=== PATIENT | female | born 1950 | race Caucasian/White ===

== ENCOUNTER 2018-09-14 | Emergency (ER) | payer MEDICARE, MEDICAID ==
[2018-09-14 00:10] VITALS: BMI 28.5
[2018-09-14 00:17] VITALS: RESP 18
--- NOTE | 2018-09-14 00:26 | C.PDOC ---
History Of Present Illness Pt presents with right flank pain radiating towads the groin, with some nausea and 2 episodes of emesis. No f/c.No chest pain or palpitations. Dull aching pain. No dysuria. Time Seen by Provider: 09/14/18 00:25 Chief Complaint (Nursing): Back Pain History Per: Patient History/Exam Limitations: no limitations Onset/Duration Of Symptoms: Days Current Symptoms Are (Timing): Still Present Context: Other Severity: Moderate Pain Scale Rating Of: 4 Location Of Pain/Discomfort: RUQ Radiation Of Pain To:: Back Quality Of Discomfort: Sharp Associated Symptoms: Nausea, Vomiting. denies: Fever, Chills Exacerbating Factors: None Alleviating Factors: None Recent travel outside of the [place]: No Additional History Per: Family Abnormal Vaginal Bleeding: No Past Medical History Reviewed: Historical Data, Nursing Documentation, Vital Signs Vital Signs: Last Vital Signs Temp 97.6 F 09/14/18 00:10 Pulse 75 09/14/18 00:10 Resp 18 09/14/18 00:10 BP 133/75 09/14/18 00:10 Pulse Ox 100 09/14/18 00:10 - Medical History PMH: HTN, Hyperlipidemia Surgical History: Appendectomy, Cholecystectomy Family History: States: No Known Family Hx - Social History Hx Alcohol Use: No Hx Substance Use: No - Immunization History Hx Tetanus Toxoid Vaccination: Yes Hx Influenza Vaccination: No Hx Pneumococcal Vaccination: Yes Review Of Systems Constitutional: Negative for: Fever, Chills Cardiovascular: Negative for: Chest Pain Respiratory: Negative for: Shortness of Breath Gastrointestinal: Positive for: Nausea, Vomiting, Abdominal Pain Genitourinary: Negative for: Dysuria Musculoskeletal: Negative for: Back Pain Skin: Negative for: Rash Neurological: Negative for: Weakness Psych: Negative for: Anxiety Physical Exam - Physical Exam Appears: Non-toxic Skin: Warm, Dry Head: Normacephalic Eye(s): bilateral: Normal Inspection Oral Mucosa: Moist Neck: Supple Chest: Symmetrical Cardiovascular: Rhythm Regular Respiratory: No Rales, No Rhonchi, No Wheezing Gastrointestinal/Abdominal: Soft, Tenderness (r flank) Back: CVA Tenderness (right) Extremity: Normal ROM Extremity: Bilateral: Atraumatic Neurological/Psych: Oriented x3 Gait: Steady ED Course And Treatment - Laboratory Results Result Diagrams: 09/14/18 01:30 09/14/18 01:30 ECG: Interpreted By Me, Viewed By Ia ECG Rhythm: Sinus Rhythm (70), Nonspecific Changes O2 Sat by Pulse Oximetry: 100 Pulse Ox Interpretation: Normal - CT Scan/US CT abd/pelvis Other Rad Studies (CT/US): Read By Radiologist, Radiology Report Reviewed CT/US Interpretation: CT SCAN OF THE ABDOMEN AND PELVIS WITH CONTRAST. CLINICAL HISTORY: Right upper abdominal pain. TECHNIQUE: Multiple axial and coronal CT images were obtained through the abdomen and pelvis after administration of int ravenous contrast material. COMMENTS: 6 mm noncalcified nodule in the right lower lobe. Prior cholecystectomy. Mildly dilated extrahepatic biliary tree. Uncomplicated diverticulosis. Moderate amount of fecal residue in the large bowels. 2.2 cm calcified uterine fibroid. The liver is of uniform attenuation without mass or defect. The spleen is normal. The pancreas is of normal contour and attenuation characteristics. There is no evidence of adrenal mass. Both kidneys demonstrate prompt and equal nephrograms. The kidneys are normal in size, shape and configuration. There is no evidence of renal or ureteral mass. No renal or ureteral calculi are identified. There is no hydroureter or h ydronephrosis. No evidence for appendicitis. There is no bowel wall thickening. No evidence for small or large bowel obstruction. There is no evidence of abdominal ascites or lymphadenopathy. There is no evidence of intrinsic or extrinsic bladder mass. There is no pelvic ascites or lymphadenopathy. Images of the lung bases show no evidence of pleural or parenchymal mass. There are no pleural effusions. The bony structures are free of lytic or blastic lesions. IMPRESSION: 6 mm noncalcified nodule in the right lower lobe. Prior cholecystectomy. Mildly dilated extrahepatic biliary tree. Uncomplicated diverticulosis. Moderate amount of fecal residue in the large bowels. 2.2 cm calcified uterine fibroid. No evidence of acute abdominal or pelvic pathology. . Electronically signed on Sep 14, 2018 4:23:16 AM EDT by: Nicol Ibrahim M.D., Certified by NICKY WOLFE, Neuroradiology Reevaluation Time: 04:34 Reassessment Condition: Improved Medical Decision Making Medical Decision Making: Upon provider reevaluation patient is feeling better, is medically stable, and requires no further treatment in the ED at this time. Patient will be discharged home with Rx for miralax, reglan. Counseling was provided and all questions were answered regarding diagnosis and need for follow up with dr choudhary. There is agreement to discharge plan. Return if symptoms persist or worsen. Disposition Counseled Patient/Family Regarding: Studies Performed, Diagnosis, Need For Followup, Rx Given - Disposition Referrals: Josefina Choudhary MD [Staff Provider] - Disposition: HOME/ ROUTINE Disposition Time: 03:00 Condition: FAIR Additional Instructions: Por favor regrese si los sntomas recurren Tambin seguir con el ndulo lbulo inferior derecho. Prescriptions: Metoclopramide [Reglan] 1 tab PO TID PRN #25 tab PRN Reason: Nausea/Vomiting Polyethylene Glycol 3350 [Miralax] 17 gm PO DAILY #270 ml Instructions: Constipation, Adult (DC), Pulmonary Nodule, Diverticulosis (DC) Forms: [facility] (Romanian) Print Language: WOLOF - Clinical Impression Clinical Impression: Abdominal pain, Constipation, Lung nodule
[2018-09-14] MEDS ORDERED: Sodium Chloride 0.9% 1,000 ML IV ONE (00:28)
[2018-09-14] MEDS ORDERED: Sodium Chloride 0.9% 1,000 ML ONE (01:09)
[2018-09-14 01:35] LABS: BASO % 0.3 % (0.0-2.0); EOS # 0.1 K/uL (0.0-0.7); EOS % 1.6 % (0.0-4.0); LYMPH # 1.9 K/uL (1.0-4.3); LYMPH % 28.2 % (20.0-40.0); MEAN CELL VOLUME 90.5 fL (81.0-99.0); MEAN CORPUSCULAR HGB CONC 34.3 g/dL (33.0-37.0); MEAN PLATELET VOLUME 10.4 fL (7.2-11.7); MONO # 0.8 K/uL (0.0-0.8); MONO % 11.3 % (0.0-10.0); NEUT # 4.1 K/uL (1.8-7.0); NEUT % 58.6 % (50.0-75.0); NRBC % 0.1 % (0.0-2.0); RBC 3.86 Mil/uL (3.80-5.20); RED CELL DISTRIBUTION WIDTH 13.3 % (11.5-14.5); WHITE BLOOD COUNT 6.9 K/uL (4.8-10.8)
[2018-09-14 01:43] LABS: PROTHROMBIN TIME 10.5 SECONDS (9.7-12.2)
[2018-09-14 01:48] LABS: SQUAMOUS EPITHIAL < 1 /hpf (0-5); URINE BILIRUBIN NEGATIVE (NEGATIVE); URINE BLOOD NEGATIVE (NEGATIVE); URINE CLARITY Clear (Clear); URINE COLOR Colorless (YELLOW); URINE GLUCOSE (UA) NORMAL (Normal); URINE LEUKOCYTE ESTERASE NEG Leu/uL (Negative); URINE PROTEIN NEGATIVE (NEGATIVE); URINE UROBILINOGEN NORMAL mg/dL (0.2-1.0)
[2018-09-14 01:49] LABS: ALB/GLOB RATIO 1.7 (1.0-2.1); ALBUMIN 4.4 g/dL (3.5-5.0); ALT/SGPT 28 U/L (9-52); AST/SGOT 22 U/L (14-36); BLOOD UREA NITROGEN 18 mg/dL (7-17); CALCIUM 9.3 mg/dl (8.6-10.4); GFR NON-AFRICAN AMERICAN > 60; LIPASE 188 U/L (23-300)
[2018-09-14] MEDS ORDERED: Iodixanol 320 MG/ML 100 ML BOTTLE IV ONE (02:15)
[2018-09-14 03:23] VITALS: PULSE 73
[2018-09-14 04:54] VITALS: BP 151/70; TEMP 97.7; O2SAT 99
--- NOTE | 2018-09-14 13:35 | CT ---
Date of service: 09/14/2018 PROCEDURE: CT Abdomen and Pelvis with contrast HISTORY: ruq and r flank pain COMPARISON: None. TECHNIQUE: Contrast dose: 100 mL Omnipaque 320 Radiation dose: Total exam DLP = 1054.86 mGy-cm. This CT exam was performed using one or more of the following dose reduction techniques: Automated exposure control, adjustment of the mA and/or kV according to patient size, and/or use of iterative reconstruction technique. FINDINGS: LOWER THORAX: On axis series 5, image 1 a right lower lobe posterior near pleural-based 7 mm pulmonary nodule noted Escape LIVER: Unremarkable. No gross lesion or ductal dilatation. GALLBLADDER AND BILE DUCTS: Moved-post cholecystectomy clips in place. Extrahepatic bile ducts prominent 9 x 12 mm pancreatic head. No gross stone here seen. Perceived caliber change in position noted at the apparent pancreatic accessory duct level. PANCREAS: As above. No pancreatic ductal dilatation noted. Common bile duct appears prominent. Slightly more prominent than typically seen with post cholecystectomy status. Consider MRCP SPLEEN: Unremarkable. ADRENALS: Unremarkable. No mass. KIDNEYS AND URETERS: No hydronephrosis. Midpole right renal intra cortical 13 x 8 mm hypodense mass probably a cyst-however tonsillar units are slightly greater than typically seen. Targeted renal ultrasound for correlation recommended. VASCULATURE: . No aortic aneurysm. Few descending abdominal aortic atherosclerotic calcifications present. No marked or significant appearing mural plaque present. BOWEL: Motion artifact. Moderate stool retention.. No obstruction. No gross mural thickening. APPENDIX: No CT signs of acute appendicitis noted. PERITONEUM: Unremarkable. No free fluid. No free air. LYMPH NODES: Unremarkable. No enlarged lymph nodes. BLADDER: Moderately distended otherwise unremarkable. REPRODUCTIVE: Calcified degenerating uterine fibroid inferred BONES: No acute fracture. Degenerative changes throughout the lumbar spine and both hips. OTHER FINDINGS: None. IMPRESSION: No bowel obstruction or free air. No renal calculi or hydronephrosis. Probable midpole right renal intra cortical cyst. Given slightly higher Hounsfield units than typically seen, consider targeted renal ultrasound Status post cholecystectomy with extrahepatic/common bile duct dilatation measuring up to 1.2 cm slightly greater than typically seen with post cholecystectomy status. Patient is 68 years of age. Consider MRCP to further evaluate. Gross pancreatic mass seen. No gross choledocholithiasis noted. A stricture benign and malignant not excluded Right lower lobe 6 to 7 mm posterior near pleural-based calcified pulmonary nodule. Concordant results (preliminary interpretation) provided by [facility].
--- NOTE | 2018-09-15 14:22 | CARD ---
APPROVED REPORT Date of service: 09/14/2018 EKG Measurement Heart [id number] <Conclusion> Normal sinus rhythm Possible Left atrial enlargement Borderline ECG
== END 2018-09-14 04:54 | disposition home or self-care (01) ==
LOC: C.ER
DX: R10.9 Unspecified abdominal pain (principal); K59.00 Constipation, unspecified; R91.1 Solitary pulmonary nodule; I10 Essential (primary) hypertension; E78.5 Hyperlipidemia, unspecified
CPT/HCPCS: 74177; 80053; 81001; 83690; 85025; 85610; 85730; 93005; 96361; 96374; 96375; 99285; C9113; J1885; J2405; J7030; Q9967